=== PATIENT | female | born 1965 | race Caucasian/White ===

== ENCOUNTER 2017-11-10 05:50 | Day surgery (SDC) | payer BC ==
[~2017-11-10] VITALS: Ht 162.6 cm; Wt 120.2 kg
[2017-11-10] MEDS ORDERED: CEFAZOLIN 1 GM IVPB PREMIX 50 ML IV ONE ×2 (07:00)
[2017-11-10] MEDS ORDERED: POLYMYXIN 500,000/BACIT.10,000 UNITS in NS IRR 1 L IR ONE ×2 (07:32→09:35)
[2017-11-10] MEDS ORDERED: HYDROmorphone 1 MG INJ. 1 MG/ML AMPUL IVP PRN (09:15)
[2017-11-10] MEDS ORDERED: KETOROLAC TROMETHAMINE 30 MG VIAL IVP ONE (09:15)
[2017-11-10] MEDS ORDERED: MEPERIDINE HCL/PF 25 MG/ML DISP.SYRIN IVP PRN (09:15)
[2017-11-10] MEDS ORDERED: fentaNYL CITRATE/PF 100 MCG/2 ML AMP IVP PRN (09:15)
[2017-11-10] MEDS ORDERED: ONDANSETRON HCL 4 MG/2 ML VIAL IVP ONE (09:15)
[2017-11-10] MEDS ORDERED: NALOXONE HCL 0.4 MG/ML AMP (NARCAN) IVP ONE (09:15)
[2017-11-10] MEDS ORDERED: MIDAZOLAM HCL 5 MG/5 ML VIAL IVP PRN (09:15)
[2017-11-10] MEDS ORDERED: HYDROcodone/ACETAMIN 5-325 MG TAB (NORCO/ VICODIN) PO PRN ×2 (10:15)
[2017-11-10] MEDS ORDERED: ONDANSETRON HCL 4 MG/2 ML VIAL IVP PRN (10:15)
[2017-11-10] MEDS ORDERED: ACETAMINOPHEN 325 MG TABLET PO PRN (10:15)
[2017-11-10] MEDS ORDERED: HYDROmorphone 1 MG INJ. 1 MG/ML AMPUL ONE (10:55)
[2017-11-10] MEDS: HYDROmorphone 1 MG INJ. 1 MG/ML AMPUL IVP PRN ×4 (13:21→21:24)
[2017-11-10] MEDS: D5/0.45 NS 1,000 ML IV SCH ×2 (14:16→20:03)
[2017-11-10] MEDS: CEFAZOLIN 1 GM IVPB PREMIX 50 ML IV SCH ×2 (14:16→21:17)
[2017-11-10] MEDS: METOCLOPRAMIDE HCL 10 MG/2 ML VIAL IVP SCH ×3 (14:20→23:58)
[2017-11-10 16:08] VITALS: BP_SYST 129
[2017-11-10 20:00] VITALS: BP_SYST 109
[2017-11-10] MEDS: FAMOTIDINE PF 20 MG/2 ML VIAL IVP SCH (21:18)
[2017-11-11 00:07] VITALS: BP_SYST 111
[2017-11-11] MEDS: HYDROmorphone 1 MG INJ. 1 MG/ML AMPUL IVP PRN ×6 (01:05→15:43)
[2017-11-11] MEDS: D5/0.45 NS 1,000 ML IV SCH ×2 (01:32→12:35)
[2017-11-11] MEDS: METOCLOPRAMIDE HCL 10 MG/2 ML VIAL IVP SCH (05:17)
[2017-11-11 08:00] VITALS: BP_SYST 112
[2017-11-11] MEDS: ENOXAPARIN SODIUM 30 MG/0.3 ML SYRINGE SUBCUT SCH ×2 (09:00→09:28)
[2017-11-11] MEDS: FAMOTIDINE PF 20 MG/2 ML VIAL IVP SCH (09:36)
[2017-11-11 14:14] VITALS: BP_SYST 118
== END 2017-11-11 16:30 | disposition home or self-care (01) ==
LOC: SDS 05:50 → SMU 13:12 → SDS 11-11 16:30
PROVIDERS: ATTEND Colon & Rectal Surgery
DX: K43.0 Incisional hernia with obstruction, without gangrene (principal); Z90.710 Acquired absence of both cervix and uterus; Z68.42 Body mass index [BMI] 45.0-49.9, adult; E66.01 Morbid (severe) obesity due to excess calories
CPT/HCPCS: 49566; 49568; 87081; 88302; C1781; J0690; J1170 ×2; J1650; J2310; J2765; J3490 ×2; J7120